=== PATIENT | female | born 1985 | race Two or more races ===

== ENCOUNTER 2022-11-13 18:46 | Emergency (ER) | payer OTHER ==
[~2022-11-13] VITALS: Ht 162.6 cm; Wt 68.0 kg
[2022-11-13] MEDS ORDERED: NORVASC5 MG (19:24)
[2022-11-13] MEDS ORDERED: LOSARTAN POTASS50 MG PO (19:24)
== END 2022-11-13 20:49 | disposition home or self-care (01) ==
LOC: ER 18:46
DX: I10 Essential (primary) hypertension (principal)